=== PATIENT | female | born 1995 | race African-American/Black ===

== ENCOUNTER 2024-03-12 20:26 | Emergency (ER) | payer OTHER, SELFPAY ==
[2024-03-12 20:28] VITALS: BP 185/107; PULSE 108; RESP 16; TEMP 36.6; O2SAT 99; BMI 38.2
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
[2024-03-12 21:27] VITALS: BP 162/96; PULSE 95; RESP 16; O2SAT 97
[2024-03-12 21:48] LABS: Absolute Lymphocyte Count 2.67 X10^3/uL (0.83-4.51); Absolute Neutrophil Count 6.7 X10^3/uL (2.0-7.7); Basophil# 0.05 X10^3/uL; Basophil% 0.5 % (0-1); Eosinophil# 0.16 X10^3/uL; Eosinophils% 1.5 % (0-5); Hematocrit 37.6 % (37-47); Hemoglobin 12.9 g/dL (12.0-15.0); Lymphocyte # 2.67 X10^3/ul (0.83-4.51); Lymphocyte % 25.5 % (19-41); Mean Corp Hgb Conc 34.3 g/dL (32-36); Mean Corpuscular Hgb 28.4 pg (27.0-32.0); Mean Corpuscular Volume 82.8 fL (81-99); Monocyte# 0.87 X10^3/uL; Monocyte% 8.3 % (0-10); NRBC Flagged by Analyzer 0 % (0-5); Neutrophil # 6.69 X10^3/uL (2.7-7.7); Platelet Count 351 K/mm3 (150-450); RBC Distribution Width CV 12.8 % (11.6-14.6); RBC Distribution Width SD 38.6 fl (35.1-43.9); Red Blood Count 4.54 M/mm3 (4.2-5.4); White Blood Count 10.5 K/mm3 (4.4-11.0)
[2024-03-12 22:00] VITALS: BP 152/103; PULSE 94; RESP 16; O2SAT 97
[2024-03-12 22:02] LABS: Internal QC Validated? YES +Cl - CLEAR BKGD; Pregnancy, Serum, hCG Quali. NEGATIVE Negative
[2024-03-12 22:05] LABS: Alcohol, Blood (Medical)-Serum < 3.0 mg/dL
[2024-03-12 22:16] LABS: ALB/GLOB Ratio 0.8 RATIO (0.9-2.4); AST(SGOT) 113 U/L (15-37); Alanine Aminotransfer ALT/SGPT 91 U/L (13-56); Albumin, Serum 3.4 g/dL (3.2-5.0); Alkaline Phosphatase 88 U/L (45-117); Anion Gap 8 (5-15); BUN 9 mg/dL (7-18); BUN/Creat Ratio 8.7 RATIO (10-20); Calcium,Total 9.2 mg/dL (8.5-10.1); Chloride 109 mmol/L (98-107); Creatinine, Serum 1.04 mg/dL (0.55-1.02); EST Glomerular Filtration Rate 67 mL/min (>60); Est Glom Filt Rate - Afr Amer 81 mL/min (>60); Estimated Creatinine Clearance 92.29 ml/min; Globulin 4.3 g/dL (2.2-4.2); Glucose 112 mg/dL (74-106); Potassium 3.3 mmol/L (3.5-5.1); Protein, Total 7.7 g/dL (6.4-8.2); Sodium Level 142 mmol/L (136-145); Thyroid Stim Hormone (TSH) 1.13 uIU/mL (0.358-3.74)
[2024-03-12 22:23] LABS: Amphetamine Urine VISTA NEGATIVE (<1000 ng/mL); Barbiturate Urine VISTA NEGATIVE (< 200 ng/mL); Benzodiazepine Urine VISTA NEGATIVE (< 200 ng/mL); Cocaine Urine VISTA NEGATIVE (< 300 ng/mL); Ecstacy Urine VISTA NEGATIVE (< 500 ng/mL); Methadone Urine VISTA NEGATIVE (< 300 ng/mL); PCP Urine VISTA NEGATIVE (< 25 ng/mL); THC Urine VISTA POSITIVE (< 50 ng/mL); Vista UDS pH Range 5
[2024-03-12] MEDS: Potassium Chloride Oral Tablet 20 MEQ PO (22:32)
[2024-03-12 23:00] VITALS: BP 133/82; PULSE 57; RESP 16; TEMP 36.6; O2SAT 97
[2024-03-12 23:56] VITALS: BP 133/82; PULSE 57; RESP 16; TEMP 36.6; O2SAT 97
[2024-03-13] MEDS: Nortriptyline 25 MG Capsule 50 MG PO (00:13)
--- NOTE | 2024-03-13 03:12 | ED.RN ---
attempted to call report to [facility] [phone] no answer at [address] and left a message to call [facility] @[phone].
[2024-03-13 06:02] VITALS: BP 147/87; PULSE 83; O2SAT 94
[2024-03-13 06:46] VITALS: BP 147/87; PULSE 83; RESP 16; TEMP 36.2; O2SAT 95
== END 2024-03-13 07:00 ==
PROVIDERS: Emergency Provider Student in an Organized Health Care Education/Training Program; PCP Family Medicine; Visit Provider Student in an Organized Health Care Education/Training Program
DX: F23 Brief psychotic disorder (principal); E87.6 Hypokalemia; R45.851 Suicidal ideations
CPT/HCPCS: 80053; 80307; 80320; 84443; 84703; 85025; 99284; G0480

== ENCOUNTER 2025-08-23 11:47 | Emergency (ER) | payer OTHER, SELFPAY ==
[2025-08-23 11:47] VITALS: BP 125/74; PULSE 62; RESP 16; TEMP 36.6; O2SAT 98; BMI 41.8
--- NOTE | 2025-08-23 11:58 | EDS_ITS ---
HPI HPI - Female History of Present Illness Chief Complaint: Vag Bld, Preg PFSH PFSH Home Medications ?Medication ?Instructions ?Recorded ?Last Taken ?Type nortriptyline 50 mg capsule 50 mg PO QHS 03/12/24 Unkn own History methylergonovine 0.2 mg tablet 0.2 mg PO .qid 2 days # 8 tabs 08/23/25 Unknown Rx ondansetron 4 mg disintegrating 4 mg PO Q8H PRN PRN Na usea #10 tabs 08/23/25 Unknown Rx tablet Allergy/AdvReac Type Severity Reaction Status Date / Time magnesium sulfate (From Allergy Rash Verified 08/23/25 11:50 Epsom Salt) Social History (Updated 08/23/25 @ 11:50 by Eugenie Virgen) housing: house Smoking Status: Never smoker EXAM Physical Exam Const Vital Signs: 08/23/25 11:47 08/23/25 15:00 08/23/25 17:00 Temperature 97.9 F Temperature Source Oral Pulse Rate 62 90 66 Respiratory Rate 16 Blood Pressure 125/74 H 110/80 122/66 H Blood Pressure Mean 91 90 84 Pulse Ox 98 100 100 Oxygen Delivery Method Room Air 08/23/25 18:09 Temperature 97.3 F L Temperature Source Pulse Rate 66 Respiratory Rate 18 Blood Pressure 122/66 H Blood Pressure Mean 84 Pulse Ox 100 Oxygen Delivery Method MDM MDM MDM Narrative Medical decision making narrative: HISTORY OF PRESENT ILLNESS: Chief complaint: Vaginal bleeding 30-year-old female G 2, P 1 who states she is approximately 10 weeks presents with concern for vaginal bleeding. States I am actively miscarrying. Notes she is going through greater than 3 pads in 1 hour. She does note a syncopal episode as well. States she was seen at outside hospital yesterday for similar symptoms. She also endorses feeling dizzy. Denies blood thinner use REVIEW OF SYSTEMS: Pertinent positives: Vaginal bleeding, dizziness Pertinent negatives: Chest pain, shortness of breath, urinary complaints (dysuria, hematuria, frequency) PHYSICAL EXAM: Nursing triage notes reviewed, Vital signs reviewed Constitutional: please see mdm HENT: MMM Eyes: Pupils equal round and reactive to light, Extraocular muscles intact Neck: No stridor, no JVD, full neck ROM Lungs: Clear to auscultation, No wheezing or rales. No increased work of breathing, no conversational dyspnea, no accessory muscle use, no nasal flaring. No respiratory distress noted Heart: Regular rate and rhythm, No murmurs, No rubs and No gallops, 2+ distal pulses (radial, femoral, posterior tibial) in all extremities Abdomen: Soft, there is no tenderness, rigidity, rebound or guarding, no obvious peritoneal signs, no palpable pulsatile abdominal masses, no auscultated abdominal bruit : No CVAT Extremities: No edema Pelvic: Deferred by patient Neuro: No new focal neurological deficits, cranial nerves II through XII intact, 5/5 strength in all present extremities. Intact sensation to light touch in all present extremities, 2+ reflexes bilateral patella tendons. Skin: No rash or lesions noted MEDICAL DECISION MAKING: Chief Complaint: please see HPI External records reviewed: Reviewed Clinisync: Hemoglobin was 10.7 on 08/23/2025. Urinalysis is negative. I cannot access physician records or transvaginal ultrasound records. Factors affecting care: First trimester Social determinants of health: First trimester History obtained from others: none Consults: [employer] (Dr. Krueger) discussed the patient's case. He noted the patient was not actively bleeding if she had normal vitals and no significant anemia that she would not require surgical intervention. Recommended giving IM Methergine and discharging with oral meds to the [employer] every 6 for the next 2 days MDM Narrative: The patient was initially hemodynamically stable, afebrile and nontoxic. Exam without obvious cardiopulmonary maladies but abdomen soft and nontender. I considered the following differential diagnosis: Miscarriage, retained products of conception, anemia I obtained broad lab and imaging evaluation to further determine if the patient was suffering from a life-threatening etiology. Initially treated the patient with IV fluids Obtained labs including type and screen. Obtained transvaginal ultrasound. ALL IMAGES (IF OBTAINED) HAVE BEEN PERSONALLY REVIEWED AND INTERPRETED BY MYSELF. EKG with normal sinus rhythm rate of 66, normal axis, no intervals, no STEMI Rh+ no need for RhoGAM CBC with leukocytosis suggestive of system information, stable anemia, no thrombocytopenia Quantitative hCG consistent with miscarriage Urinalysis with likely asymptomatic bacteriuria as patient does not complain of any urinary symptoms Transvaginal ultrasound consistent retained products of conception. The synthesis of the patient's history, physical exam, labs images suggest bleeding and discomfort secondary to retained products of conception. I discussed the case with [facility] [employer] who recommended medication management rather than surgical intervention. On reassessment the patient remained hemodynamically stable. She states she stopped bleeding while in the emergency department. She notes she is symptoma tically better. Given stable vitals, no active bleeding and stable blood count she is appropriate for IM Methergine and discharge. The patient and/or family, caregivers express understanding. The patient and/or family, caregivers agrees with the plan. Shared decision making: I will have a discussion with the patient and or visitors regarding risk/benefits of further testing or admission. They will be made aware of of the risk/benefits inherent in this decision they will be given the opportunity to voice understanding. Total critical care time today provided was at least 0 minutes. This excludes separately billable procedures. Critical care time (if documented) is secondary to the patient having high probability of clinically significant/life threatening deterioration in the patient's condition which required my urgent intervention. Impression: 1. Miscarriage 2. Retained products of conception Dispo: Discharge home This note was generated with [employer] dictation software. It may contain incorrect words, spelling, and punctuation that were not noted in review of the chart prior to signing. Lab Data Labs: Laboratory Results - last 24 hr 08/23/25 08/23/25 12:05 16:00 WBC 14.0 H RBC 3.91 L Hgb 10.9 L Hct 32.4 L MCV 82.9 MCH 27.9 MCHC 33.6 RDW Std Deviation 41.1 RDW Coeff of Marcin 13.7 Plt Count 297 MPV 9.5 Immature Gran % (Auto) 0.400 Neut % (Auto) 78.1 H Lymph % (Auto) 12.7 L [place] % (Auto) 6.7 Eos % (Auto) 1.9 Baso % (Auto) 0.2 Absolute Neuts (auto) 11.0 H Absolute Lymphs (auto) 1.79 Nucleated RBC % 0 HCG, Quant 4310 H Urine Color [place] Urine Clarity Cloudy Urine pH 6.5 Ur Specific [place] 1.010 Urine Protein 100 H Urine Glucose (UA) Normal Urine Ketones 50 H Urine Occult Blood 250 H Urine Nitrite Positive H Urine Bilirubin Negative Urine Urobilinogen Normal Ur Leukocyte Esterase 100 H Urine RBC > 100 SEEN Urine WBC 5-10 SEEN Ur Squamous Epith Cells 0-5 SEEN Urine Bacteria 1+ Urine Mucus 0 SEEN Blood Type A POSITIVE Antibody Screen NEGATIVE Radiography Diagnostic Testing: Clinical Impression(s) from Imaging Studies Obstetrics Ultrasound 08/23/25 12:15 IMPRESSION: Findings concerning for retained product of conception with gestational sac visualized within the cervix and thickened endometrium containing complex hypervascular tissue. Reading Location: [facility] Discharge Plan Triage Chief Complaint: Vag Bld, Preg ED Provider: Leonel Zepeda Dx/Rx/DC Orders Clinical Impression: Retained products of conception Instructions: Miscarriage Dc Prescriptions: New methylergonovine 0.2 mg tablet 0.2 mg PO .qid 2 Days Qty: 8 0RF ondansetron 4 mg tablet,disintegrating 4 mg PO Q8H PRN PRN (Reason: Nausea) Qty: 10 0RF No Action nortriptyline 50 mg capsule 50 mg PO QHS Primary Care Provider: Michael Herrera Referrals: Zackary Krueger MD [Med Staff - Active Staff, Obstetrics-Gynecology (OBGYN)] Activity Restrictions/Additional Instructions: Thank you for trusting us with your care today! Please take Tylenol (2 pills, 650 mg), ibuprofen (2 pills, 400 mg) every 6 hours as needed for pain and fever control. Please take prescribed Methergine. Please take Zofran as needed for nausea vomiting control Please return to the emergency department if your symptoms change or worsen. Specifically develop heavy bleeding (soaking through more than 3 pads in 1 hour), if you lose consciousness, develop severe abdominal pain. Please follow with [facility] [employer] for further outpatient evaluation and management. Print Language: Nigerian Disposition Disposition: Home, Self Care Discharge Date/Time: 08/23/25 18:14
--- NOTE | 2025-08-23 12:15 | US_ITS ---
PROCEDURE: TRANSVAGINAL W/PREG US 08/23/2025 REASON FOR EXAM: VAGINAL BLEEDING, CRAMPING R/O RPOC TECHNIQUE: Procedure Code: [id number] Modality: US Procedure: TRANSVAGINAL W/PREG US COMPARISON: None FINDINGS Uterus measures 10 x 5.2 x 3.8 cm. No uterine fibroid. Cervix is closed. No free fluid within the cul-de-sac. Gestational sac measures 1.8 cm corresponding with gestational age of 6 weeks and 5 days. This gestational sac appears to be low within the intrauterine segment within the cervix. heart rate is not detected. Endometrium appears thickened with complex tissue and hypervascularity suggestive of retained product. Right ovary measures 2.8 x 2.5 x 1.5 cm and left ovary is not well visualized due to overlying bowel gas. US/Transvaginal w/Preg US IMPRESSION: Findings concerning for retained product of conception with gestational sac vis ualized within the cervix and thickened endometrium containing complex hypervascular tissue. Reading Location: [facility]
--- NOTE | 2025-08-23 12:17 | EKG12_ITS ---
Test Reason : ARRYTH Blood Pressure : */* mmHG Vent. Rate : 66 BPM Atrial Rate : 66 BPM P-R Int : 154 ms QRS Dur : 92 ms QT Int : 392 ms P-R-T Axes : 47 11 21 degrees QTcB Int : 410 ms Normal sinus rhythm with sinus arrhythmia Normal ECG Confirmed by SUSY WANG, RALPH ([id number]), visual effects editor MAGED MISHRA ([id number]) on 08/24/2025 8:39:24 AM Referred By: Confirmed By: RALPH JAIN MD
[2025-08-23] MEDS: 0.9% Normal Saline (1000mL) 1,000 ML 999 ML IV ×2 (12:24→14:17)
--- OUTSIDE RECORDS SUMMARY | 2025-08-23 12:29 | XMS RPT_ITS | CCD ---
Author Organization [facility] Inform ion Partnership [facility] Care Team Providers Care Toilet Attendant Name Role Phone EDWARD WANG, MICHAEL Primary Care Physician JACKLYN ARMSTRONG, KAIA Attending Unavailable EDWARD WANG, MICHAEL Primary Care Unavailable YOBANI CAZARES MD Attending Unavaila juanito LEON MD, MICHAEL Primary Care Unavailable EDWARD WANG, MICHAEL Admitting Leobardo LEON MD, MICHAEL Primary Care Unavailable EDWARD WANG, MICHAEL Attending Unavailable Yoel Zapata Attending Unavailable Michael Leon Primary Care Unavailable Allergies Allergy Classification Reported Allergen(s) Allergy Type Date of Onset Reaction(s) Facility (3 sources) Magnesium Sulfate; Translations: [magnesium sulfate] Drug Allergy 03-12-2024 [facility] (1 source) Magnesium Sulfate Drug Allergy 03-12-2024 [facility] Repository Medications Current Medications Medication Drug Class(es) Dates Sig (Normalized) Sig (Original) methylPREDNISolone 4 mg oral tablet (1 source) Corticosteroid Start: 06-13-2022 End: 06-19-2022 take 1 tablet by mouth once daily Medrol 4 mg oral tablet 1 packet(s), Oral, qDay, as directed on package labeling, X 6 day(s), # 21 tab(s), 0 Refill(s), 06/19/22 13:51:00 EDT Start Date: 06/13/22 Stop Date: 06/19/22 Status: Ordered naproxen 500 mg oral tablet (1 source) Nonsteroidal Anti-inflammatory Drug Start: 06-13-2022 End: 06-19-2022 naproxen 500 mg oral tablet Dose : 500 mg = 1 tab(s), Oral, BID, # 15 tab(s), 0 Refill(s), 06/19/22 13:54:00 EDT Start Date: 06/13/22 Stop Date: 06/19/22 Status: Ordered nortriptyline 50 mg oral capsule (1 source) Tricyclic Antidepressant Start: 03-12-2024 take 50 mg by mouth at bedtime Nortriptyline Active 50 MG PO AT BEDTIME March 12, 2024 12:00am 12 hr orphenadrine citrate 100 mg extended release oral tablet (1 source) Muscle Relaxant Start: 06-13-2022 End: 06-20-2022 orphenadrine 100 mg oral tablet, extended release Dose : 100 mg = 1 tab(s), Oral, BID, X 7 day(s), # 14 tab(s), 0 Refill(s), 06/20/22 13:52:00 EDT Start Date: 06/13/22 Stop Date: 06/20/22 Status: Ordered Vitamin D and K oral tablet (2 sources) Start: 06-10-2022 Vitamin D and K oral tablet Start Date: 06/10/22 Status: Ordered Problems Problem Classification Problem Date Documented Da te Episodic/Chronic Mood disorders (1 source) Sabine; Translations: [Bipolar disorder, current episode manic without psychotic features, moderate] 03-13-2024 Chronic Other nervous system disorders (1 source) Paresthesia; Translations: [Paresthesia of skin] Onset: 10-01-2022 Episodic Schizophrenia and other psychotic disorders (1 source) Brief psychotic disorder; Translations: [Brief psychotic disorder] Onset: 03-19-2024 Episodic Results Test Name Value Interpretation Reference Range Facility Alcohol, Blood (Medical)-Ser [facility] 03-13-2024 SERUM ETOH < 3.0 Normal [facility] Comment on above: Result Comment: The serum:whole blood ethanol ratio is approximately 1.14 and varies slightly with hematocrit. Medical Alcohol reference interval and critical value in non-tolerant individuals; 50 - 100 Impairment 100 Intoxication 100 - 250 Severe Poisoning 250 - 400 Deep/possible fatal coma Performed By: #### L 100.0100, L700.6800, L501.9520, L500.4050, L501.9100, L505.5000 #### [facility] [address] [place], [place], [id number] Comprehensive Metabolic Prof [facility] 03-13-2024 Albumin [Mass/Vol] 3.4 g/dL Normal 3.2-5.0 [facility] Comment on above: Performed By: #### L 100.0100, L700.6800, L501.9520, L500.4050, L501.9100, L505.5000 #### [facility] [address] [place], [address] Albumin/Globulin [Mass ratio] 0.8 {ratio} Low 0.9-2.4 [facility] Comment on above: Performed By: #### L 100.0100, L700.6800, L501.9520, L500.4050, L501.9100, L505.5000 #### [facility] [address] [place], [address] ALK P 88 U/L Normal 45-117 [facility] Comment on above: Performed By: #### L 100.0100, L700.6800, L501.9520, L500.4050, L501.9100, L505.5000 #### [facility] [address] [place], [address] ALT [Catalytic activity/Vol] 91 U/L High 13-56 [facility] Comment on above: Performed By: #### L 100.0100, L700.6800, L501.9520, L500.4050, L501.9100, L505.5000 #### [facility] [address] [place], [address] AST [Catalytic activity/Vol] 113 U/L High 15-37 [facility] Comment on above: Performed By: #### L 100.0100, L700.6800, L501.9520, L500.4050, L501.9100, L505.5000 #### [facility] [address] [place], [address] Bilirubin [Mass/Vol] 0.30 mg/dL Normal 0.20-1.00 [facility] Comment on above: Result Comment: For patients on eltrombopag therapy, use of Dimension Slater TBIL is not recommended. Performed By: #### L 100.0100, L700.6800, L501.9520, L500.4050, L501.9100, L505.5000 #### [facility] [address] [place], [address] BUN/CRE 8.7 RATIO Low 10-20 [facility] Comment on above: Performed By: #### L 100.0100, L700.6800, L501.9520, L500.4050, L501.9100, L505.5000 #### [facility] [address] [place], [address] CA,Total 9.2 mg/dL Normal 8.5-10.1 [facility] Comment on above: Performed By: #### L 100.0100, L700.6800, L501.9520, L500.4050, L501.9100, L505.5000 #### [facility] [address] [place], [address] Chloride [Moles/Vol] 109 mmol/L High 98-107 [facility] Comment on above: Performed By: #### L 100.0100, L700.6800, L501.9520, L500.4050, L501.9100, L505.5000 #### [facility] [address] [place], [address] CO2 [Moles/Vol] 25.0 mmol/L Normal 21.0-32.0 [facility] Comment on above: Performed By: #### L 100.0100, L700.6800, L501.9520, L500.4050, L501.9100, L505.5000 #### [facility] [address] [place], [address] Creatinine [Mass/Vol] 1.04 mg/dL High 0.55-1.02 [facility] Comment on above: Result Comment: The validity of the calculated GFR GFRAA in patients over 70 years has not been determined. Clinical correlation is essential. Performed By: #### L 100.0100, L700.6800, L501.9520, L500.4050, L501.9100, L505.5000 #### [facility] [address] [place], [address] ECRCL 92.29 ml/min Normal [facility] Comment on above: Performed By: #### L 100.0100, L700.6800, L501.9520, L500.4050, L501.9100, L505.5000 #### [facility] [address] [place], [address] EST GFR - AA 81 mL/min Normal >60 [facility] Comment on above: Result Comment: Afri can [place] GFR Calc Performed By: #### L 100.0100, L700.6800, L501.9520, L500.4050, L501.9100, L505.5000 #### [facility] [address] [place], [address] GAP 8 Normal 5-15 [facility] Comment on above: Performed By: #### L 100.0100, L700.6800, L501.9520, L500.4050, L501.9100, L505.5000 #### [facility] [address] [place], [address] GFR/1.73 sq M.predicted among non-blacks MDRD (S/P/Bld) [Vol rate/Area] 67 mL/min/{1.73_m2} Normal >60 [facility] Comment on above: Result Comment: Non- GFR Calc Performed By: #### L 100.0100, L700.6800, L501.9520, L500.4050, L501.9100, L505.5000 #### [facility] [address] [place], [address] Globulin (S) [Mass/Vol] 4.3 g/dL High 2.2-4.2 [facility] Comment on above: Performed By: #### L 100.0100, L700.6800, L501.9520, L500.4050, L501.9100, L505.5000 #### [facility] [address] [place] [place], [address] Glucose [Mass/Vol] 112 mg/dL High 74-106 [facility] Comment on above: Result Comment: Fast ing Glucose result from 100 to 125 mg/dL suggests IMPAIRED HOMEOSTASIS per A.D.A. criteria. Performed By: #### L 100.0100, L700.6800, L501.9520, L500.4050, L501.9100, L505.5000 #### [facility] [address] [place] [place], [address] Potassium [Moles/Vol] 3.3 mmol/L Low 3.5-5.1 [facility] Comment on above: Performed By: #### L 100.0100, L700.6800, L501.9520, L500.4050, L501.9100, L505.5000 #### [facility]
[2025-08-23 12:32] LABS: Hematocrit 32.4 % (37-47); Hemoglobin 10.9 g/dL (12.0-15.0); Immature Granulocytes Count 0.060 X10^3/uL (0.0-0.0); Mean Corp Hgb Conc 33.6 g/dL (32-36); Mean Corpuscular Volume 82.9 fL (81-99); Mean Platelet Vol. 9.5 fl (6.2-12.0); NRBC Flagged by Analyzer 0 % (0-5); Platelet Count 297 K/mm3 (150-450); RBC Distribution Width CV 13.7 % (11.6-14.6); RBC Distribution Width SD 41.1 fl (35.1-43.9); Red Blood Count 3.91 M/mm3 (4.2-5.4); White Blood Count 14.0 K/mm3 (4.4-11.0)
[2025-08-23 13:31] LABS: hCG Titer Quant., Serum 4310 mIU/mL (<9 non-preg)
[2025-08-23 15:00] VITALS: BP 110/80; PULSE 90; O2SAT 100
[2025-08-23 16:05] LABS: Mucous, Urine 0 SEEN /hpf (<or=2+)
[2025-08-23 16:15] LABS: Color, Urine Amber (Yellow); Glucose, Dipstick Normal (Normal); Ketone-Dipstick 50 mg/dl (Negative); Leukocyte Esterase-Dipstick 100 /ul (Negative); Nitrite-Dipstick Positive (Negative); Occult Blood-Urine 250 /ul (Negative); Protein-Dipstick 100 mg/dl (Negative); Specific Gravity, Urine 1.010 (1.002-1.030); Urine Bilirubin Dipstick Negative (Negative)
[2025-08-23 16:41] LABS: Red Blood Cells-Urine > 100 SEEN /hpf (0-5)
[2025-08-23 16:42] LABS: Squamous Epithelial Cells - UA 0-5 SEEN /hpf (5-10)
[2025-08-23 17:00] VITALS: BP 122/66; PULSE 66; O2SAT 100
[2025-08-23 18:09] VITALS: BP 122/66; PULSE 66; RESP 18; TEMP 36.3; O2SAT 100
== END 2025-08-23 18:14 | disposition home or self-care (01) ==
PROVIDERS: Emergency Provider Emergency Medicine; PCP Family Medicine; Visit Provider Emergency Medicine
DX: O03.4 Incomplete spontaneous abortion without complication (principal)
CPT/HCPCS: 76817; 81001; 84702; 85025; 86850; 86900; 86901; 93005; 96360; 96361; 96372; 99284; A4216